=== PATIENT | male | born 1980 | race Caucasian/White ===

== ENCOUNTER 2017-04-09 16:24 | Emergency (ER) | payer OTHER ==
[2017-04-09 16:31] VITALS: BP 159/92
[2017-04-09] MEDS ORDERED: IBUPROFEN 800 MG TABLET PO ONE (17:17)
--- NOTE | 2017-04-09 17:18 | ER Document Report ---
HPI - HPI Patient complains to provider of: Low back pain Onset: Other - 10 days Onset/Duration: Persistent Quality of pain: Sharp Pain Level: 4 Context: Patient presents complaining of low back pain that radiates to left lower extremity to the level of his knee. Patient denies any injury. Patient denies any urinary retention or incontinence. Patient denies any fever or IV drug use. Patient does do a lot of lifting at his place of employment. Associated Symptoms: Other - Low back pain, left lower extremity pain Exacerbated by: Movement Relieved by: Denies Similar symptoms previously: No Recently seen / treated by doctor: No - ROS ROS below otherwise negative: Yes Systems Reviewed and Negative: Yes All other systems reviewed and negative - CONSTITUTIONAL Constitutional: DENIES: Fever, Chills - NEURO Neurology: DENIES: Weakness - URINARY Urinary: DENIES: Dysuria Notes: No retention or incontinence - MUSCULOSKELETAL Musculoskeletal: REPORTS: Extremity pain, Back Pain - DERM Skin Color: Normal Skin Problems: None Past Medical History - General Information source: Patient - Social History Smoking Status: Current Every Day Smoker Frequency of alcohol use: None Drug Abuse: None Occupation: [employer] management Family History: Reviewed & Not Pertinent, Malignancy - Medical History Medical History: Negative Renal/ Medical History: Denies: Hx Peritoneal Dialysis Past Surgical History: Reports: Hx Orthopedic Surgery Vertical Provider Document - CONSTITUTIONAL Agree With Documented VS: Yes Exam Limitations: No Limitations General Appearance: WD/WN, No Apparent Distress Notes: PHYSICAL EXAMINATION: GENERAL: Well-appearing, well-nourished and in no acute distress. HEAD: Atraumatic, normocephalic. EYES: sclera clear, anicteric, conjunctiva are normal. ENT: nares patent, Moist mucous membranes. NECK: Normal range of motion, supple no lymphadenopathy LUNGS: respirations unlabored HEART: Regular rate and rhythm without murmurs EXTREMITIES: Normal range of motion, no pitting or edema. No cyanosis. Gait normal, pt ambulates without difficulty BACK: Lower lumbar midline tenderness, left paraspinal tenderness, no deformities or step-offs. No CVA tenderness. NEUROLOGICAL: Cranial nerves grossly intact. Normal speech, normal gait. No saddle anesthesia. No footdrop, 2+ bilateral patellar and Achilles reflexes PSYCH: Normal mood, normal affect. SKIN: Warm, Dry, normal turgor, no rashes or lesions noted. - INFECTION CONTROL TRAVEL OUTSIDE OF THE [place] IN LAST 30 DAYS: No - RESPIRATORY O2 Sat by Pulse Oximetry: 98 Course - Re-evaluation Re-evalutation: 04/09/17 18:09 The patient has been informed that they may have pre-hypertension or hypertension based on a blood pressure reading in the emergency department. I recommend that patient call the primary care provider listed on their discharge instructions or a physician of their choice by this week to arrange follow-up for further evaluation of possible pre-hypertension or hypertension. The patient presents with low back pain without signs of spinal cord compression , cauda equina syndrome, infection, aneurysm, or other serious etiology. The patient is neurologically intact. Given the extremely risk of these diagnoses further testing and evaluation for these possibilities does not appear to be indicated at this time. Patient has been instructed to return if the symptoms worsen or change in any way. - Vital Signs Vital signs: Temp Pulse Resp BP Pulse Ox 98.3 F 92 16 159/92 H 98 04/09/17 16:30 04/09/17 16:30 04/09/17 16:30 04/09/17 16:30 04/09/17 16:30 - Diagnostic Test Radiology reviewed: Image reviewed, Reports reviewed Discharge - Discharge Clinical Impression: Elevated blood pressure reading Low back pain Qualifiers: Chronicity: acute Back pain laterality: left Sciatica presence: with sciatica Sciatica laterality: sciatica of left side Qualified Code(s): M54.42 - Lumbago with sciatica, left side Condition: Stable Disposition: HOME, SELF-CARE Instructions: Family Physicians / Practices, Ice Packs ([facility]), Low Back Pain ( [facility]), Oral Narcotic Medication ([facility]), Warm Packs ([facility]) Additional Instructions: Return immediately for any new or worsening symptoms Followup with your primary care provider, call tomorrow to make a followup appointment Prescriptions: Hydrocodone/Acetaminophen [[place] 5-325 Tablet] 1 each PO Q4 PRN #15 tablet PRN Reason: Naproxen [Naprosyn 250 Nmg Tablet] 1 tab PO BID #14 tablet Forms: Elevated Blood Pressure, Return to Work Referrals: [facility] [Provider Group]
--- NOTE | 2017-04-09 17:59 | RADIOLOGY REPORT (SQ) ---
EXAM DESCRIPTION: L SPINE WHOLE COMPLETED DATE/TIME: 04/09/2017 5:47 pm REASON FOR STUDY: low back pain COMPARISON: None. NUMBER OF VIEWS: Five views including obliques. TECHNIQUE: AP, lateral, oblique, and sacral radiographic images acquired of the lumbar spine. LIMITATIONS: None. FINDINGS: MINERALIZATION: Normal. SEGMENTATION: Normal. No transitional anatomy. ALIGNMENT: Normal. VERTEBRAE: Maintained height. No fracture or worrisome bone lesion. DISCS: Preserved height. No significant osteophytes or end plate irregularity. POSTERIOR ELEMENTS: Pedicles and facets are intact. No pars defect or posterior arch defects. HARDWARE: None in the spine. PARASPINAL SOFT TISSUES: Normal. PELVIS: Intact as visualized. No fractures or worrisome bone lesions. SI joints intact. OTHER: No other significant finding. IMPRESSION: NORMAL 5 VIEW LUMBAR SPINE. TECHNICAL DOCUMENTATION: JOB ID: [id number] [employer]- All Rights Reserved
== END 2017-04-09 18:20 | disposition home or self-care (01) ==
LOC: ER 16:24
DX: M54.42 Lumbago with sciatica, left side (principal); R03.0 Elevated blood-pressure reading, without diagnosis of hypertension; F17.200 Nicotine dependence, unspecified, uncomplicated
CPT/HCPCS: 72110; 99283

== ENCOUNTER 2017-05-20 19:40 | Emergency (ER) | payer OTHER ==
[2017-05-20 19:50] VITALS: BP 140/88
--- NOTE | 2017-05-20 20:16 | ER Document Report ---
ED Hand/Wrist Injury - General Chief Complaint: Hand Pain Stated Complaint: WRIST INJURY Time Seen by Provider: 05/20/17 20:01 Mode of Arrival: Ambulatory Information source: Patient Notes: 36-year-old male presents to ED for pain in his left hand hurting yesterday when he woke up he states it was sore and hurting. He states when he picked his hand up he had sharp pain from the web of his thumb across to his hand down his forearm and on the back of his hand from the middle of his hand to his thumb and then just past his wrist. He states he was not able to close his hand yesterday but now he is able to close his hand has full range of motion of the hand. TRAVEL OUTSIDE OF THE [place] IN LAST 30 DAYS: No - HPI Injury to: Hand, Wrist Onset: Yesterday Where: Home Timing: Still present, Better Quality of pain: Achy, Throbbing Severity: Moderate Pain Level: 3 Context: Other - No known injury to this time had previous fracture of his third metacarpal with surgery - Related Data Allergies/Adverse Reactions: morphine Allergy (Verified 05/20/17 20:00) Past Medical History - General Information source: Patient - Social History Smoking Status: Current Every Day Smoker Cigarette use (# per day): Yes - Pack per day Chew tobacco use (# tins/day): No Smoking Education Provided: Yes - 1 minute Frequency of alcohol use: Social - Couple times a month Drug Abuse: None Occupation: full service vending driver for [employer] Lives with: Spouse/Significant other - Children Family History: Arthritis - Gout, Malignancy Patient has suicidal ideation: No Patient has homicidal ideation: No - Past Medical History Cardiac Medical History: Reports: None Pulmonary Medical History: Reports: None EENT Medical History: Reports: None Neurological Medical History: Reports: None Endocrine Medical History: Reports: None Renal/ Medical History: Reports: Other - Pinched ureter Malignancy Medical History: Reports None GI Medical History: Reports: None Musculoskeltal Medical History: Reports Hx Arthritis, Reports Hx Musculoskeletal Trauma Skin Medical History: Reports None Psychiatric Medical History: Reports: None Traumatic Medical History: Reports: Hx Fractures - Left hand left knee and left hip Infectious Medical History: Reports: None Past Surgical History: Reports: Hx Appendectomy, Hx Genitourinary Surgery - Ureter repair with stent and then removal of stent, Hx Orthopedic Surgery - Left hand 1 left knee 4 left hip 1 - Immunizations Immunizations up to date: Yes Review of Systems - Review of Systems Constitutional: No symptoms reported EENT: No symptoms reported Cardiovascular: No symptoms reported Respiratory: No symptoms reported Gastrointestinal: No symptoms reported Genitourinary: No symptoms reported Male Genitourinary: No symptoms reported Musculoskeletal: Other - Pain to left hand and wrist has scarred to this area from previous surgeries does not remember any recent injuries Skin: No symptoms reported Hematologic/Lymphatic: No symptoms reported Neurological/Psychological: No symptoms reported -: Yes All other systems reviewed and negative Physical Exam - Vital signs Vitals: Temp BP 98.4 F 140/88 H 05/20/17 19:47 05/20/17 19:47 Interpretation: Normal - General General appearance: Appears well, Alert - HEENT Head: Normocephalic, Atraumatic Eyes: Normal Pupils: PERRL - Respiratory Respiratory status: No respiratory distress Chest status: Nontender Breath sounds: Normal Chest palpation: Normal - Cardiovascular Rhythm: Regular Heart sounds: Normal auscultation Murmur: No - Abdominal Inspection: Normal Distension: No distension Bowel sounds: Normal Tenderness: Nontender Organomegaly: No organomegaly - Back Back: Normal, Nontender - Extremities General upper extremity: Normal color, Normal ROM, Normal temperature General lower extremity: Normal inspection, Nontender, Normal color, Normal ROM , Normal temperature, Normal weight bearing. No: Daniel's sign Wrist: Tender, Axial load of thumb pain, Limited ROM - Due to pain. No: Abrasion, Deformity, Dislocation, Ecchymosis, Instability, Laceration, Navicular tenderness Hand: Tender, No evidence of human bite, No evidence of FB. No: Swelling - Neurological Neuro grossly intact: Yes Cognition: Normal Orientation: AAOx4 [place] Coma Scale Eye Opening: Spontaneous [place] Coma Scale Verbal: Oriented [place] Coma Scale Motor: Obeys Commands [place] Coma Scale Total: 15 Speech: Normal Motor strength normal: LUE, RUE, LLE, RLE Sensory: Normal - Psychological Associated symptoms: Normal affect, Normal mood - Skin Skin Temperature: Warm Skin Moisture: Dry Skin Color: Normal Course - Re-evaluation Re-evalutation: 05/20/17 23:22 Patient was treated with ibuprofen and a [place] dispense pack for his pain in his hand and wrist. Patient was given a cock-up splint to reduce the movement in the wrist which he states helped his pain in his wrist. Patient was instructed to follow-up with orthopedics for the pain in his hand and wrist. - Vital Signs Vital signs: Temp Pulse Resp BP Pulse Ox 98.4 F 97 16 140/88 H 98 05/20/17 19:48 05/20/17 19:48 05/20/17 19:48 05/20/17 19:48 05/20/17 19:48 - Diagnostic Test Radiology reviewed: Image reviewed, Reports reviewed Procedures - Immobilization Left Hand Time completed: 20:41 Pre-Proc Neuro Vasc Exam: Normal Immobilizer type: Cock-up Performed by: FABI Post-Proc Neuro Vasc Exam: Normal Alignment checked and good: Yes Discharge - Discharge Clinical Impression: Pain in left hand Condition: Stable Disposition: HOME, SELF-CARE Additional Instructions: You were seen today complaint of left hand pain that started yesterday with no injury. X-ray does not show any acute changes it does show chronic changes from your previous weights and surgeries. You will be put in a cockup splint which will decrease the motion of your wrist and hand. Will be given a Lot18 dispense pack for your pain and you will be instructed to follow-up with orthopedics. ICE & ELEVATION: Apply ice packs frequently against the painful area. Many different schedules are recommended, such as "20 minutes on, 20 minutes off" or "one hour ice, two hours rest." If you need to work, you may need to go longer between ice treatments. You should plan to have the area ice packed AT LEAST one- fourth of the time. The ice should be applied over the wrap, tape, or splint, or over a layer of cloth -- not directly against the skin. Some ice bags have a built-in cloth and can be put directly on the skin. Your injured part should be elevated as much as possible over the next 48 hours. Try to keep the injury above the level of the heart. Avoid use of the injured area. Elevation and rest will decrease the swelling. USE OF [id number] IBUPROFEN: Ibuprofen (Advil, Nuprin, Medipren, Motrin IB) is a medication for fever and pain control. In addition, it has anti- inflammatory effects which may be beneficial, especially in the treatment of injuries. It's best to take ibuprofen with food. Persons with ulcer disease or allergy to aspirin should notify their physician of this before taking ibuprofen. Ibuprofen can be given every four to six hours, for a total of four doses daily. Age Pain or fever dose Antiinflammatory dose 6-8 yr 200 mg (1 tab) 200 mg (1 tab) 9-11 yr 200 mg (1 tab) 200-400 mg (1-2 tab) 11-14 yr 200-400 mg (1-2 tab) 400 mg (2 tab) 15-adult 400 mg (2 tab) 600 mg (3 tab) ORAL NARCOTIC MEDICATION: You have been given a [place] dispense pack for pain control. This medication is a narcotic. It's best taken with food, as nausea can result if taken on an empty stomach. Don't operate machinery or drive within six hours of taking this medication. Do not combine this medicine with alcohol, or with any medication which can cause sedation (such as cold tablets or sleeping pills) unless you get permission from the physician. Narcotics tend to cause constipation. If possible, drink plenty of fluids and eat a diet high in fiber and fruits. Please be aware that prescription narcotics also have the potential for abuse. People become addicted to these medications because of the general sense of wellbeing that they induce. This feeling along with a significant reduction in tension, anxiety, and aggression provides a stimulating seductive quality to these drugs. Once your pain is under control, we encourage you to discard your unused narcotics. FOLLOW-UP CARE: If you have been referred to a physician for follow-up care, call the physician s office for an appointment as you were instructed or within the next two days. If you experience worsening or a significant change in your symptoms, notify the physician immediately or return to the Emergency Department at any time for re-evaluation. Forms: Elevated Blood Pressure, Smoking Cessation Education, Return to Work Referrals: [facility] [ACTIVE STAFF] - Follow up as needed
--- NOTE | 2017-05-20 20:28 | RADIOLOGY REPORT (SQ) ---
EXAM DESCRIPTION: HAND LEFT 3 VIEWS COMPLETED DATE/TIME: 05/20/2017 8:17 pm REASON FOR STUDY: pain COMPARISON: None. EXAM PARAMETERS: NUMBER OF VIEWS: Three views. TECHNIQUE: AP, lateral and oblique radiographic images acquired of the left hand. LIMITATIONS: None. FINDINGS: MINERALIZATION: Normal. BONES: No acute fracture or dislocation. Deformity of the base of the 3rd and 4th metacarpal, chroni c appearing and possibly due to prior trauma. No worrisome bone lesions. JOINTS: No effusions. SOFT TISSUES: No soft tissue swelling. No foreign body. OTHER: No other significant finding. IMPRESSION: CHRONIC APPEARING DEFORMITIES AT THE BASE OF THE 3RD AND 4TH METACARPAL. NO ACUTE FINDI NGS. TECHNICAL DOCUMENTATION: JOB ID: [id number] [employer]- All Rights Reserved
[2017-05-20] MEDS ORDERED: HYDROCODONE/ACETAMINOPHEN 5-325 MG 6 TAB/DSPK PO PRN (20:34)
== END 2017-05-20 20:46 | disposition home or self-care (01) ==
LOC: ER 19:40
DX: M79.642 Pain in left hand (principal); F17.210 Nicotine dependence, cigarettes, uncomplicated; Z88.6 Allergy status to analgesic agent
CPT/HCPCS: 99283; 73130; L3908

== ENCOUNTER 2017-06-01 18:00 | Emergency (ER) | payer OTHER ==
[2017-06-01 18:10] VITALS: BP 151/90
== END 2017-06-01 18:30 | disposition left against medical advice (07) ==
LOC: ER 18:00
DX: Z53.21 Procedure and treatment not carried out due to patient leaving prior to being seen by health care provider (principal)

== ENCOUNTER 2017-06-26 17:47 | Emergency (ER) | payer OTHER ==
[2017-06-26 18:03] VITALS: BP 147/93
== END 2017-06-26 18:50 | disposition left against medical advice (07) ==
LOC: ER 17:47
DX: Z53.9 Procedure and treatment not carried out, unspecified reason (principal); R10.9 Unspecified abdominal pain